=== PATIENT | male | born 1955 | race Caucasian/White ===

== ENCOUNTER 2018-05-31 12:56 | Emergency (ER) | payer MEDICAID, OTHER ==
[~2018-05-31] VITALS: Ht 188 cm; Wt 98.9 kg
--- NOTE | 2018-05-31 13:20 | NUR ---
pt bib self who c/o of right shoulder pain. alert and oriented x 4, verbally responsive and able to make needs known. on room air, 02 sat 98%, breathing evenly and unlabored. kept comfortable, will cotninue to monitor accoridngly.
[2018-05-31] MEDS ORDERED: IBUPROFEN 600 MG TABLET PO ONE ×2 (13:27→13:30)
[2018-05-31 14:48] VITALS: BP 134/60
--- NOTE | 2018-05-31 14:49 | NUR ---
Patient discharged to home in stable condition. Written and verbal after care instructions given. Patient verbalizes understanding of instruction.
== END 2018-05-31 14:48 | disposition home or self-care (01) ==
LOC: ER 12:59
DX: M25.511 Pain in right shoulder (principal); N40.0 Benign prostatic hyperplasia without lower urinary tract symptoms; M54.9 Dorsalgia, unspecified
CPT/HCPCS: 73030; 99283; A4606; Z7610

== ENCOUNTER 2020-03-31 18:48 | Emergency (ER) | payer OTHER ==
[~2020-03-31] VITALS: Ht 188 cm; Wt 105.2 kg
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
[2020-03-31] MEDS ORDERED: TDAP [DIPH/PERTUSSIS/TET] 0.5 ML VIAL IM ONE ×2 (19:17→19:30)
[2020-03-31] MEDS ORDERED: LIDOCAINE 1%-EPI 1:100,000 50 ML VIAL IJ ONE (19:30)
--- NOTE | 2020-03-31 19:38 | NUR ---
EMT AT BEDSIDE FOR WOUNDCARE
[2020-03-31 20:07] VITALS: BP 122/72
--- NOTE | 2020-03-31 20:07 | NUR ---
Patient discharged to home in stable condition. Written and verbal after care instructions given. Patient verbalizes understanding of instruction and RX. Pt ambulated with steady gait. vss.
== END 2020-03-31 20:08 | disposition home or self-care (01) ==
LOC: ER 18:50
DX: S61.412A Laceration without foreign body of left hand, initial encounter (principal); G89.29 Other chronic pain; M54.9 Dorsalgia, unspecified; Z23 Encounter for immunization; W26.0XXA Contact with knife, initial encounter; Y93.89 Activity, other specified; Y92.89 Other specified places as the place of occurrence of the external cause; Y99.8 Other external cause status
CPT/HCPCS: 12001; 90471; 90715; 99283; J3490

== ENCOUNTER 2020-07-20 17:28 | Emergency (ER) | payer OTHER ==
[~2020-07-20] VITALS: Ht 188 cm; Wt 102.1 kg
[2020-07-20 17:56] VITALS: BP 133/81
--- NOTE | 2020-07-20 18:06 | NUR ---
Patient awake alert orrinted no s/s of distress noted Rt side bruise Md aware .
--- NOTE | 2020-07-20 19:02 | NUR ---
GIVEN REPORT TO WAN
[2020-07-20] MEDS ORDERED: IBUP-1958 PO (20:19)
== END 2020-07-20 20:49 | disposition home or self-care (01) ==
LOC: ER 17:38
DX: S20.211A Contusion of right front wall of thorax, initial encounter (principal); M25.531 Pain in right wrist; M79.672 Pain in left foot; M54.9 Dorsalgia, unspecified; W01.0XXA Fall on same level from slipping, tripping and stumbling without subsequent striking against object, initial encounter; Y93.89 Activity, other specified; Y92.89 Other specified places as the place of occurrence of the external cause; Y99.8 Other external cause status
CPT/HCPCS: 71100; 73110; 73630; 99284; A6403

== ENCOUNTER 2023-08-08 18:20 | Emergency (ER) | payer OTHER ==
[~2023-08-08] VITALS: Ht 188 cm; Wt 104.3 kg
[~2023-08-08 18:20] MED LIST: IBUP-1958 PO
[2023-08-08 18:40] VITALS: BP 122/82; TEMP 98.4
[2023-08-08] MEDS ORDERED: CEPH500C2 PO (19:21)
[2023-08-08 19:28] VITALS: O2SAT 98
== END 2023-08-08 19:29 | disposition home or self-care (01) ==
LOC: ER 18:20
DX: S91.012A Laceration without foreign body, left ankle, initial encounter (principal); W55.12XA Struck by horse, initial encounter; Y93.89 Activity, other specified; Y92.89 Other specified places as the place of occurrence of the external cause; Y99.8 Other external cause status